=== PATIENT | male | born 1960 | race Caucasian/White ===

== ENCOUNTER 2022-02-21 10:47 | Day surgery (SDC) | payer MEDICAID ==
[~2022-02-21] VITALS: Ht 177.8 cm; Wt 95.3 kg
[2022-02-21] MEDS ORDERED: LIDOCAINE 2% 100 MG/5 ML UJET TP ONE (12:08)
[2022-02-21] MEDS ORDERED: fentaNYL citrate 0.05 MG/ML VIAL ONE (12:08)
[2022-02-21] MEDS ORDERED: fentaNYL citrate 0.05 MG/ML VIAL IVP ONE (14:15)
== END 2022-02-21 14:20 | disposition home or self-care (01) ==
LOC: MOR 10:47 → MMU 10:53 → MOR 14:20
PROVIDERS: ATTEND Internal Medicine Gastroenterology
DX: Z12.11 Encounter for screening for malignant neoplasm of colon (principal); K63.5 Polyp of colon; E78.5 Hyperlipidemia, unspecified; I12.9 Hypertensive chronic kidney disease with stage 1 through stage 4 chronic kidney disease, or unspecified chronic kidney disease; E11.22 Type 2 diabetes mellitus with diabetic chronic kidney disease; N18.2 Chronic kidney disease, stage 2 (mild); F17.210 Nicotine dependence, cigarettes, uncomplicated; Z79.899 Other long term (current) drug therapy; Z20.822 Contact with and (suspected) exposure to COVID-19
CPT/HCPCS: 45385; 82948; 87426; J3010